=== PATIENT | male | born 1965 | race Two or more races ===

== ENCOUNTER 2021-05-12 10:07 | Emergency (ER) | payer OTHER ==
[~2021-05-12] VITALS: Ht 170.2 cm; Wt 81.6 kg
[2021-05-12] MEDS ORDERED: LEVOTHYROXINE200 MCG PO (10:19)
[2021-05-12] MEDS ORDERED: LEVOTHYROXINE25 MC1 PO (10:19)
[2021-05-12] MEDS ORDERED: FAMOTIDINE40 MG PO (10:20)
[2021-05-12] MEDS ORDERED: ROSUVASTATIN CA10 MG PO (10:20)
[2021-05-12] MEDS ORDERED: INTESTINEX680 M1 PO (13:25)
[2021-05-12] MEDS ORDERED: PEPCID AC20 MG PO (13:25)
[2021-05-12] MEDS ORDERED: METRONIDAZOLE500 MG PO (13:25)
[2021-05-12] MEDS ORDERED: CIPRO500 MG PO (13:25)
== END 2021-05-12 15:15 | disposition home or self-care (01) ==
LOC: ER 10:07
DX: R19.7 Diarrhea, unspecified (principal); A49.3 Mycoplasma infection, unspecified site; K64.8 Other hemorrhoids